=== PATIENT | female | born 1945 | race Two or more races ===

== ENCOUNTER 2018-09-16 07:39 | Day surgery (SDC) | payer MEDICARE, OTHER ==
[~2018-09-16 07:39] MED LIST: LIDOCAINE 2% (SDV) 5 ML INJ
[2018-09-16] MEDS ORDERED: PROPOFOL 40 ML (09:20)
== END 2018-09-16 11:58 | disposition home or self-care (01) ==
LOC: GIL 07:39
DX: R19.4 Change in bowel habit (principal); K29.50 Unspecified chronic gastritis without bleeding; K21.9 Gastro-esophageal reflux disease without esophagitis; K64.8 Other hemorrhoids; I10 Essential (primary) hypertension; E03.9 Hypothyroidism, unspecified
CPT/HCPCS: 43239; 88305; 88312

== ENCOUNTER 2018-12-10 09:51 | Emergency (ER) | payer MEDICARE, OTHER | END 2018-12-10 11:13 | disposition home or self-care (01) | LOC: FTE 09:51 | DX: L74.0 Miliaria rubra (principal); I10 Essential (primary) hypertension; Z85.850 Personal history of malignant neoplasm of thyroid | CPT/HCPCS: 99283 ==